=== PATIENT | female | born 1985 | race Caucasian/White ===

== ENCOUNTER 2016-09-07 12:02 | Inpatient (IN) | payer MEDICAID ==
[~2016-09-07] VITALS: Ht 160 cm; Wt 65.3 kg
[2016-09-07] MEDS ORDERED: SODIUM CHLORIDE FLUSH 10ML SYR IVF ONE (13:00)
[2016-09-07 13:02] LABS: BLOOD UREA NITROGEN 10 mg/dL (7-18)
[2016-09-07 14:49] LABS: ANTI-Xa-UNFRACTIONATED HEP 0.03 IU/mL (0.30-0.70)
[2016-09-07] MEDS ORDERED: HEPARIN 5,000 UNITS/ML, 1ML IV ONE (15:00)
[2016-09-07] MEDS ORDERED: HEPARIN 25,000 UNITS/500ML PMX 500 ML IV PRN (15:00)
[2016-09-07] MEDS ORDERED: HEPARIN 5,000 UNITS/ML, 1ML IV PRN (15:00)
[2016-09-07] MEDS ORDERED: ETHI1TAB26 PO (15:04)
[2016-09-07] MEDS ORDERED: HEPARIN 25,000 UNITS/500ML PMX 500 ML ONE (15:06)
[2016-09-07] MEDS ORDERED: HEPARIN 5,000 UNITS/ML, 1ML ONE (15:06)
[2016-09-07] MEDS ORDERED: HYDR-3240 PO (15:35)
[2016-09-07] MEDS ORDERED: TRAM-28 PO (15:35)
[2016-09-07] MEDS ORDERED: OMNIPAQUE 350 MG/ML, 100ML BOTTLE ONE (16:04)
[2016-09-07] MEDS ORDERED: BISACODYL 10 MG SUPP PR PRN (16:30)
[2016-09-07] MEDS ORDERED: LABETALOL 5MG/ML, 20ML IVPush PRN (16:30)
[2016-09-07] MEDS ORDERED: Enoxaparin 1 mg/kg protocol SQ SCH (16:30)
[2016-09-07] MEDS ORDERED: ONDANSETRON ODT 4 MG PO PRN (16:30)
[2016-09-07] MEDS ORDERED: POLYETHYLENE GLYCOL 17 GM PACKET PO PRN (16:30)
[2016-09-07] MEDS: SODIUM CHLORIDE 0.9% 1,000 ML IV SCH (16:30)
[2016-09-07] MEDS ORDERED: ACETAMINOPHEN 325 MG TABLET PO PRN (16:30)
[2016-09-07 17:43] LABS: IS PT STATUS REG ER OR PRE ER? YES
[2016-09-07] MEDS: HEPARIN 25,000 UNITS/500ML PMX 500 ML IV PRN (18:52)
[2016-09-07 20:06] VITALS: BP 123/86
[2016-09-07] MEDS: OXYcodone IR 5MG TABLET PO PRN (21:25)
[2016-09-07] MEDS: ONDANSETRON 2MG/ML, 2ML IVPush PRN (21:25)
[2016-09-07] MEDS: HEPARIN 5,000 UNITS/ML, 1ML IV PRN (23:12)
[2016-09-07] MEDS ORDERED: FLUCONAZOLE 100 MG TABLET PO ONE (23:30)
[2016-09-08] MEDS: SODIUM CHLORIDE 0.9% 1,000 ML IV SCH ×5 (02:00→23:00)
[2016-09-08] MEDS: OXYcodone IR 5MG TABLET PO PRN ×2 (03:45→09:46)
[2016-09-08 04:08] VITALS: BP 108/72
[2016-09-08] MEDS: LORazepam 1MG TABLET PO PRN (05:14)
[2016-09-08 06:06] LABS: BLOOD UREA NITROGEN 10 mg/dL (7-18)
[2016-09-08] MEDS: HEPARIN 5,000 UNITS/ML, 1ML IV PRN ×3 (06:30→20:05)
[2016-09-08 06:59] VITALS: BP 105/69
[2016-09-08] MEDS: morphine SULFATE 10 MG/ML, 1ML IVPush PRN ×2 (09:00→09:30)
[2016-09-08 10:39] LABS: IS PT STATUS REG ER OR PRE ER? NO
[2016-09-08] MEDS: KETOROLAC 30 MG/1 ML IVPush PRN ×3 (10:45→23:00)
[2016-09-08] MEDS: HYDROmorphone 2 MG/ML, 1ML IVPush PRN ×3 (13:41→21:24)
[2016-09-08] MEDS: DOCUSATE 100 MG CAPSULE PO PRN ×2 (13:45→21:24)
[2016-09-08 14:00] VITALS: BP 122/81
[2016-09-08] MEDS: ONDANSETRON 2MG/ML, 2ML IVPush PRN (14:22)
[2016-09-08] MEDS: HEPARIN 25,000 UNITS/500ML PMX 500 ML IV PRN (18:28)
[2016-09-08 18:52] VITALS: BP 107/70
[2016-09-09 02:07] VITALS: BP 107/69
[2016-09-09] MEDS: HYDROmorphone 2 MG/ML, 1ML IVPush PRN ×7 (02:14→23:10)
[2016-09-09] MEDS: HEPARIN 5,000 UNITS/ML, 1ML IV PRN (03:28)
[2016-09-09] MEDS: LORazepam 1MG TABLET PO PRN ×3 (03:34→23:10)
[2016-09-09] MEDS: KETOROLAC 30 MG/1 ML IVPush PRN ×3 (05:06→17:42)
[2016-09-09 06:40] VITALS: BP 108/71
[2016-09-09] MEDS: SODIUM CHLORIDE 0.9% 1,000 ML IV SCH ×2 (08:16→19:40)
[2016-09-09] MEDS: DOCUSATE 100 MG CAPSULE PO PRN ×2 (08:17→19:40)
[2016-09-09] MEDS: APIXABAN 5 MG TABLET PO SCH ×2 (08:50→19:40)
[2016-09-09 15:10] VITALS: BP 117/77
[2016-09-09 19:11] VITALS: BP 127/78
[2016-09-09] MEDS ORDERED: LORazepam 1MG TABLET PO ONE (22:00)
[2016-09-09 23:06] LABS: DILUTE PROTHROMBIN TIME (DPT) 36.2 sec (0.0-55.0); DILUTE RUSSELL'S VIPER VENOM 41.4 sec (0.0-47.0); LUPUS REFLEX INTERPRETATION Comment: (.); PTT-LA 36.3 sec (0.0-43.6)
[2016-09-10] MEDS: KETOROLAC 30 MG/1 ML IVPush PRN ×4 (00:15→20:13)
[2016-09-10 00:16] VITALS: BP 102/67
[2016-09-10] MEDS: HYDROmorphone 2 MG/ML, 1ML IVPush PRN ×3 (04:54→12:13)
[2016-09-10] MEDS: LORazepam 1MG TABLET PO PRN ×3 (04:54→21:58)
[2016-09-10] MEDS: SODIUM CHLORIDE 0.9% 1,000 ML IV SCH (05:04)
[2016-09-10 05:44] LABS: ASPARTATE AMINO TRANSFERASE 13 U/L (15-37); BLOOD UREA NITROGEN 7 mg/dL (7-18)
[2016-09-10 08:14] VITALS: BP 106/67
[2016-09-10] MEDS: APIXABAN 5 MG TABLET PO SCH ×2 (08:37→20:14)
[2016-09-10] MEDS ORDERED: OXYcodone IR 5MG TABLET PO PRN (11:00)
[2016-09-10] MEDS ORDERED: MAGNESIUM HYDROXIDE 8%, 30ML UDC PO PRN (14:00)
[2016-09-10 14:38] VITALS: BP 106/70
[2016-09-10] MEDS: SENNA/DOCUSATE TABLET PO SCH (14:40)
[2016-09-10] MEDS: HYDROcodone/APAP 5/325 TABLET PO PRN ×2 (16:45→21:58)
[2016-09-10] MEDS ORDERED: HYDROmorphone 2 MG/ML, 1ML IVPush PRN (17:30)
[2016-09-10 20:04] VITALS: BP 110/74
[2016-09-10] MEDS: DOCUSATE 100 MG CAPSULE PO PRN (20:13)
[2016-09-11] MEDS: KETOROLAC 30 MG/1 ML IVPush PRN ×4 (02:31→21:56)
[2016-09-11 02:39] VITALS: BP 100/64
[2016-09-11] MEDS: HYDROcodone/APAP 5/325 TABLET PO PRN ×3 (03:42→20:24)
[2016-09-11] MEDS: LORazepam 1MG TABLET PO PRN ×3 (05:12→20:29)
[2016-09-11 05:40] LABS: BLOOD UREA NITROGEN 6 mg/dL (7-18)
[2016-09-11 06:36] VITALS: BP 109/74
[2016-09-11] MEDS: SENNA/DOCUSATE TABLET PO SCH ×2 (07:59→20:24)
[2016-09-11] MEDS: APIXABAN 5 MG TABLET PO SCH ×2 (07:59→20:23)
[2016-09-11] MEDS: ONDANSETRON 2MG/ML, 2ML IVPush PRN (10:25)
[2016-09-11 15:10] VITALS: BP 122/70
[2016-09-11 20:01] VITALS: BP 112/73
[2016-09-11 21:55] VITALS: BP 125/82
[2016-09-12 01:14] VITALS: BP 126/85
[2016-09-12] MEDS: LORazepam 1MG TABLET PO PRN (01:15)
[2016-09-12] MEDS: HYDROcodone/APAP 5/325 TABLET PO PRN ×2 (04:44→13:29)
[2016-09-12 05:27] LABS: BLOOD UREA NITROGEN 5 mg/dL (7-18)
[2016-09-12 05:31] LABS: ASPARTATE AMINO TRANSFERASE 16 U/L (15-37)
[2016-09-12] MEDS: SENNA/DOCUSATE TABLET PO SCH (07:52)
[2016-09-12] MEDS: KETOROLAC 30 MG/1 ML IVPush PRN (07:52)
[2016-09-12] MEDS: APIXABAN 5 MG TABLET PO SCH (07:52)
[2016-09-12 07:54] VITALS: BP 144/97
[2016-09-12] MEDS ORDERED: LORA-446 PO (12:58)
[2016-09-12] MEDS ORDERED: APIX5TAB PO (12:58)
[2016-09-12] MEDS ORDERED: HYDR-3240 PO (12:58)
[2016-09-12 16:07] LABS: FACTOR II DNA ANALYSIS Negative (.)
[2016-09-16] MEDS ORDERED: APIXABAN 5 MG TABLET PO SCH (08:30)
== END 2016-09-12 15:56 | disposition home or self-care (01) | DRG 175 ==
LOC: ED 14:50 → EDIP 14:54 → ED 15:07 → 5SO 19:07 → DCLOUNGE 09-12 15:35
PROVIDERS: ADMIT Internal Medicine; ATTEND Internal Medicine
DX: I26.99 Other pulmonary embolism without acute cor pulmonale (principal); E43 Unspecified severe protein-calorie malnutrition; D68.59 Other primary thrombophilia; F41.9 Anxiety disorder, unspecified; Z98.82 Breast implant status; Z80.3 Family history of malignant neoplasm of breast; Z88.4 Allergy status to anesthetic agent; Z87.01 Personal history of pneumonia (recurrent); Z79.891 Long term (current) use of opiate analgesic; Z79.899 Other long term (current) drug therapy; Z79.3 Long term (current) use of hormonal contraceptives; Z79.01 Long term (current) use of anticoagulants
CPT/HCPCS: 36415; 71010; 71275; 80048; 80053; 81001; 81240; 81241; 82040; 83090; 83880; 84484; 84703; 85025; 85300; 85303; 85306; 85520; 85610; 85613; 85670; 85705; 85730; 85732; 86147; 87086; 93005; 93306; 93970; 96361; 96374; J1170; J1644; J1885; J2405; Q9967; J2270; J7030

== ENCOUNTER 2016-09-13 05:06 | Emergency (ER) | payer MEDICAID ==
[~2016-09-13] VITALS: Ht 160 cm; Wt 63.5 kg
[~2016-09-13 05:06] MED LIST: APIX5TAB PO; ETHI1TAB26 PO; HYDR-3240 PO; LORA-446 PO; TRAM-28 PO
[2016-09-13] MEDS ORDERED: SODIUM CHLORIDE 0.9% 1,000 ML IV ONE (05:42)
[2016-09-13] MEDS ORDERED: PANTOPRAZOLE 40 MG IV ONE (05:48)
[2016-09-13] MEDS ORDERED: ONDANSETRON 2MG/ML, 2ML ONE (05:48)
[2016-09-13] MEDS ORDERED: PANTOPRAZOLE 40 MG IV IVP ONE (06:00)
[2016-09-13] MEDS ORDERED: SODIUM CHLORIDE FLUSH 10ML SYR IVF ONE (06:00)
[2016-09-13] MEDS ORDERED: ONDANSETRON 2MG/ML, 2ML IVPush ONE (06:00)
[2016-09-13] MEDS ORDERED: SODIUM CHLORIDE 0.9% 1,000ML IVBOLUS ONE (06:00)
[2016-09-13 06:12] LABS: BLOOD UREA NITROGEN 7 mg/dL (7-18)
[2016-09-13 06:27] VITALS: BP 123/84
== END 2016-09-13 08:03 | disposition home or self-care (01) ==
LOC: ED 07:57
DX: K92.0 Hematemesis (principal)
CPT/HCPCS: 36415; 80048; 82040; 85025; 85610; 85730; 96361; 96374; 96375; 99285; C9113; J2405; J7030

== ENCOUNTER 2017-09-20 20:48 | Emergency (ER) | payer OTHER ==
[~2017-09-20] VITALS: Ht 160 cm; Wt 62.3 kg
[~2017-09-20 20:48] MED LIST changes: -TRAM-28 PO; +TRAM-47 PO
[2017-09-20] MEDS ORDERED: SODIUM CHLORIDE FLUSH 10ML SYR IVF ONE (22:00)
[2017-09-20 22:16] LABS: BASOPHILS # (AUTO) 0.02 x10^3/uL (0-0.1); BASOPHILS % (AUTO) 0 % (0-1); EOSINOPHILS # (AUTO) 0.15 x10^3/uL (0-0.4); EOSINOPHILS % (AUTO) 2 % (1-7); LYMPHOCYTES # (AUTO) 2.13 x10^3/uL (1-3.4); LYMPHOCYTES % (AUTO) 32 % (22-44); MD NO; MEAN CORPUSCULAR HEMOGLOBIN 31.5 pg (27.0-34.8); MEAN CORPUSCULAR HGB CONC 34.4 g/dL (32.4-35.8); MEAN CORPUSCULAR VOLUME 91.6 fL (80-100); MEAN PLATELET VOLUME 7.9 fL (7.4-10.4); MONOCYTES # (AUTO) 0.63 x10^3/uL (0.2-0.8); MONOCYTES % (AUTO) 9 % (2-9); NEUTROPHILS # (AUTO) 3.79 x10^3/uL (1.8-6.8); NEUTROPHILS % (AUTO) 56 % (42-75); PLATELET COUNT 283 x10^3/uL (130-400); RED BLOOD COUNT 4.42 x10^6/uL (3.82-5.3); RED CELL DISTRIBUTION WIDTH 12.9 % (9.6-15.2)
[2017-09-20 22:23] LABS: INTERNATIONAL NORMALIZED RATIO 1.01 (0.93-1.1); PROTHROMBIN TIME 10.4 Seconds (9.6-11.5)
[2017-09-20 22:24] LABS: ALANINE AMINOTRANSFERASE 22 U/L (12-78); ALBUMIN 3.7 g/dL (3.4-5.0); ANION GAP 8 mmol/L (5-15); CALCIUM 9.1 mg/dL (8.5-10.1); CHLORIDE 108 mmol/L (98-107)
[2017-09-20 22:29] LABS: ALKALINE PHOSPHATASE 45 U/L (45-117); BILIRUBIN,TOTAL 0.7 mg/dL (0.2-1.0); TOTAL PROTEIN 7.4 g/dL (6.4-8.2)
[2017-09-20] MEDS ORDERED: OMNIPAQUE 350 MG/ML, 100ML BOTTLE ONE (23:22)
[2017-09-21] MEDS ORDERED: KETOROLAC 30 MG/1 ML IVPush ONE
[2017-09-21] MEDS ORDERED: KETOROLAC 30 MG/1 ML ONE (00:01)
[2017-09-21 00:27] LABS: MICROSCOPIC AUTO
[2017-09-21 00:32] LABS: CULTURE INDICATED? NO
[2017-09-21 00:47] VITALS: BP 115/79
== END 2017-09-21 01:04 | disposition home or self-care (01) ==
LOC: ED 23:59
DX: M54.5 Low back pain (principal); R06.00 Dyspnea, unspecified
CPT/HCPCS: 36415; 71045; 71275; 74174; 80053; 81001; 83690; 84703; 85025; 85610; 85730; 93005; 96374; 99285; J1885; Q9967

== ENCOUNTER 2019-01-20 15:42 | Emergency (ER) | payer OTHER ==
[~2019-01-20] VITALS: Ht 160 cm; Wt 62.0 kg
--- NOTE | 2019-01-20 15:55 | NUR ---
PT CRYING, ANXIOUS. WORRIED ABOUT WHAT IS WRONG WITH HER AND THAT SHE DOESN'T FEEL GOOD.CONTINUE TO ATTEMPT TO HELP PT CALM DOWN
[2019-01-20] MEDS ORDERED: LORazepam 2 MG/ML, 1ML ONE (15:59)
[2019-01-20] MEDS ORDERED: LORazepam 2 MG/ML, 1ML IVPush ONE (16:00)
[2019-01-20 16:05] LABS: BASOPHILS # (AUTO) 0.04 x10^3/uL (0-0.1); BASOPHILS % (AUTO) 1 % (0-1); EOSINOPHILS # (AUTO) 0.11 x10^3/uL (0-0.4); EOSINOPHILS % (AUTO) 1 % (1-7); LYMPHOCYTES # (AUTO) 1.71 x10^3/uL (1-3.4); LYMPHOCYTES % (AUTO) 23 % (22-44); MD NO; MEAN CORPUSCULAR HEMOGLOBIN 31.4 pg (27.0-34.8); MEAN CORPUSCULAR HGB CONC 33.9 g/dL (32.4-35.8); MEAN CORPUSCULAR VOLUME 92.8 fL (80-100); MEAN PLATELET VOLUME 7.6 fL (7.4-10.4); MONOCYTES # (AUTO) 0.58 x10^3/uL (0.2-0.8); MONOCYTES % (AUTO) 8 % (2-9); NEUTROPHILS # (AUTO) 5.02 x10^3/uL (1.8-6.8); NEUTROPHILS % (AUTO) 67 % (42-75); PLATELET COUNT 288 x10^3/uL (130-400); RED BLOOD COUNT 4.81 x10^6/uL (3.82-5.3); RED CELL DISTRIBUTION WIDTH 12.1 % (9.6-15.2)
[2019-01-20 16:17] LABS: ANION GAP 7 mmol/L (5-15); CALCIUM 9.2 mg/dL (8.5-10.1); CHLORIDE 109 mmol/L (98-107); CREATININE 0.84 mg/dL (0.55-1.02)
--- NOTE | 2019-01-20 16:30 | NUR ---
AFTER PT RECEIVING ATIVAN VIA IV PT NO LONGER CRYING. AT BEDSIDE.
[2019-01-20 17:50] VITALS: BP 125/62
--- NOTE | 2019-01-20 17:50 | NUR ---
PT STATES WHEN SHE STOOD UP IN XRAY SHE FELT LIKE SHE WAS GOING TO PASS OUT. PT OK WHILE LYING IN BED. AWAITING RE-EVAL
--- NOTE | 2019-01-20 18:30 | NUR ---
MD REVIEWING TEST RESULTS, ANSWERING QUESTIONS AND DISCUSSING DISCHARGE
--- NOTE | 2019-01-20 18:38 | NUR ---
UOB TO WHEELCHAIR.C/O GERARD AND LIGHTHEADEDNESS. INFORMED PT TO GET UP FROM SITTING TO STANDING SLOWLY AND CAUTIOUSLY. PT WITH FAMILY TO DISCHARGE WINDOW
== END 2019-01-20 18:59 | disposition home or self-care (01) ==
LOC: ED 16:52
DX: S16.1XXA Strain of muscle, fascia and tendon at neck level, initial encounter (principal); S40.011A Contusion of right shoulder, initial encounter; R55 Syncope and collapse; V47.5XXA Car driver injured in collision with fixed or stationary object in traffic accident, initial encounter; Y93.89 Activity, other specified; Y92.89 Other specified places as the place of occurrence of the external cause; Y99.8 Other external cause status
CPT/HCPCS: 36415; 70450; 71046; 72125; 73030; 80048; 82040; 84703; 85025; 93005; 96374; 99284; J2060

== ENCOUNTER 2020-03-14 07:22 | Emergency (ER) | payer OTHER ==
[~2020-03-14] VITALS: Ht 160 cm; Wt 66.2 kg
--- NOTE | 2020-03-14 07:51 | NUR ---
PT SITTING UP IN BED, CO COUGH AND SOB. PT ALSO C/O POSTERIOR RT SIDED RIB PAIN WORSENING WITH COUGH OR DEEP BREATH. NAD NOTED AT THIS TIME. ADVERTISING PHOTOGRAPHER, BNP AND SPO2 IN PLACE. SIDE RAIL UP, CALL LIGHT IN REACH. PT DENIES FURTHER NEEDS AT THIS TIME.
[2020-03-14 08:58] LABS: BASOPHILS % (AUTO) 1 % (0-1); EOSINOPHILS % (AUTO) 4 % (1-7); LYMPHOCYTES % (AUTO) 29 % (22-44); MEAN CORPUSCULAR HEMOGLOBIN 31.1 pg (27.0-34.8); MEAN CORPUSCULAR HGB CONC 34.3 g/dL (32.4-35.8); MEAN PLATELET VOLUME 7.8 fL (7.4-10.4); MONOCYTES % (AUTO) 10 % (2-9); NEUTROPHILS % (AUTO) 57 % (42-75); PLATELET COUNT 288 x10^3/uL (130-400); RED BLOOD COUNT 4.42 x10^6/uL (3.82-5.3)
[2020-03-14 08:59] LABS: MD NO
--- NOTE | 2020-03-14 08:59 | NUR ---
REPORT TO KARI ANTUNEZ. NAD NOTED IN PT.
[2020-03-14 09:00] VITALS: BP 113/65
[2020-03-14 09:00] LABS: D-DIMER 0.21 ug/mlFEU (0.00-0.52); INTERNATIONAL NORMALIZED RATIO 1.02 (0.93-1.1); PROTHROMBIN TIME 10.8 Seconds (9.6-11.5)
[2020-03-14 09:02] LABS: ALBUMIN 3.9 g/dL (3.4-5.0); ANION GAP 3 mmol/L (5-15); CHLORIDE 110 mmol/L (98-107)
[2020-03-14 09:05] LABS: ALANINE AMINOTRANSFERASE 28 U/L (12-78); ALKALINE PHOSPHATASE 49 U/L (45-117); BILIRUBIN,TOTAL 0.8 mg/dL (0.2-1.0); CREATININE 0.87 mg/dL (0.55-1.02); TOTAL PROTEIN 7.6 g/dL (6.4-8.2)
== END 2020-03-14 09:54 | disposition home or self-care (01) ==
LOC: ED 08:36
DX: U07.1 COVID-19 (principal); R06.02 Shortness of breath; R06.00 Dyspnea, unspecified; R05 Cough
CPT/HCPCS: 36415; 71045; 80053; 85025; 85379; 85610; 93005; 99285

== ENCOUNTER 2020-04-25 10:18 | Emergency (ER) | payer OTHER ==
[~2020-04-25] VITALS: Ht 160 cm; Wt 63.7 kg
[~2020-04-25 10:18] MED LIST changes: +HYDR-1067 PO; -HYDR-3240 PO
--- NOTE | 2020-04-25 10:33 | NUR ---
CONTACT WITH PT, 34 YR OLD FEMALE HERE WITH C/O "LAST NIGHT WHEN I GOT INTO THE CAR, THE BACK OF MY KNEE AGAINST THE SEAT WAS EXCRUICIATING PAIN WITH SWELLING. THIS AM MOST OF THE SWELLING WAS GONE BUT THERE IS A BRUISE BEHIND THE KNEE. 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 I JUST WANTED TO RULE IT OUT." NO INJURY TO LEG. JUAN ISAAC AT BEDSIDE TO CARLIE PT.
[2020-04-25] MEDS ORDERED: DEXT10TA7 PO (10:42)
--- NOTE | 2020-04-25 10:49 | NUR ---
DR PABLO AT BEDSIDE TO CARLIE PT
--- NOTE | 2020-04-25 11:12 | NUR ---
U/S COMPLETE, AWAITING TEST RESULTS. NO ACUTE DISTRESS NOTED. SR PER MONITOR. LALY LEGS ELEVATED, NO NEEDS EXPRESSED AT THIS TIME.
[2020-04-25 11:20] LABS: BASOPHILS % (AUTO) 0 % (0-1); EOSINOPHILS % (AUTO) 2 % (1-7); LYMPHOCYTES % (AUTO) 20 % (22-44); MEAN CORPUSCULAR HEMOGLOBIN 32.1 pg (27.0-34.8); MEAN CORPUSCULAR HGB CONC 35.1 g/dL (32.4-35.8); MEAN PLATELET VOLUME 7.6 fL (7.4-10.4); MONOCYTES % (AUTO) 9 % (2-9); NEUTROPHILS % (AUTO) 68 % (42-75); PLATELET COUNT 281 x10^3/uL (130-400); RED BLOOD COUNT 4.66 x10^6/uL (3.82-5.3); RED CELL DISTRIBUTION WIDTH 12.8 % (9.6-15.2)
[2020-04-25 11:26] LABS: MD NO
[2020-04-25 11:36] VITALS: BP 121/73
--- NOTE | 2020-04-25 11:59 | NUR ---
RECEIVED CALL FROM LAB, D-DIMER WAS REPORTED >35 IN ERROR. CORRECT VALUE IS 0.27. DR PABLO AND PT NOTIFED OF CORRECT VALUE. PT TO BE DC'D. NO ACUTE DISTRESS NOTED.
[2020-04-25] MEDS ORDERED: SODIUM CHLORIDE FLUSH 10ML SYR IVF ONE (12:00)
--- NOTE | 2020-04-25 12:25 | NUR ---
AFTER [facility] WRAP APPLIED LEFT KNEE PT GIVEN DISCHARGE INSTRUCTIONS. PT AMBULATED TO DISCHARGE WINDOW STEADY GAIT
== END 2020-04-25 12:29 | disposition home or self-care (01) ==
LOC: ED 10:53
DX: S80.02XA Contusion of left knee, initial encounter (principal); R06.02 Shortness of breath; R07.89 Other chest pain; X58.XXXA Exposure to other specified factors, initial encounter; Y93.89 Activity, other specified; Y92.89 Other specified places as the place of occurrence of the external cause; Y99.8 Other external cause status
CPT/HCPCS: 36415; 85025; 85379; 93005; 99285